=== PATIENT | female | born 1980 | race Caucasian/White ===

== ENCOUNTER → 2018-07-06 | Outpatient (CLI) | payer BC ==
[2018-07-08 14:10] LABS: HPV 16 Negative (Negative); HPV 18 Negative (Negative); HPV OTHER HR TYPES Negative (Negative)
== END | disposition home or self-care (01) ==
LOC: LAB SHORT 10:56 → LAB 10:56
PROVIDERS: Obstetrics & Gynecology
DX: Z01.419 Encounter for gynecological examination (general) (routine) without abnormal findings (principal)
CPT/HCPCS: 87624; G0123

== ENCOUNTER 2023-11-02 16:33 | Emergency (ER) | payer OTHER ==
[~2023-11-02] VITALS: Ht 160 cm; Wt 90.7 kg
[2023-11-02 16:59] VITALS: BP 186/128
== END 2023-11-02 18:10 | disposition home or self-care (01) ==
LOC: ER 16:33
DX: S70.11XA Contusion of right thigh, initial encounter (principal); S80.12XA Contusion of left lower leg, initial encounter; M25.511 Pain in right shoulder; R07.81 Pleurodynia; V59.49XA Driver of pick-up truck or van injured in collision with other motor vehicles in traffic accident, initial encounter; F41.9 Anxiety disorder, unspecified; Z88.0 Allergy status to penicillin
CPT/HCPCS: 71101; 96372; 99284-25; A9270; J1885

== ENCOUNTER 2024-11-13 20:22 | Emergency (ER) | payer OTHER ==
[~2024-11-13] VITALS: Ht 160 cm; Wt 90.7 kg
[2024-11-13 20:25] VITALS: BP 179/98
[2024-11-13] MEDS ORDERED: Ibuprofen 400 MG Tab PO ONE (23:30)
[2024-11-13] MEDS ORDERED: Acetaminophen 500 MG Tab PO ONE (23:30)
== END 2024-11-14 00:07 | disposition home or self-care (01) ==
LOC: ER 20:22
DX: M79.642 Pain in left hand (principal); Z88.0 Allergy status to penicillin
CPT/HCPCS: 29125; 73120; 99283-25; A9270

== ENCOUNTER 2025-01-14 18:02 | Emergency (ER) | payer OTHER ==
[~2025-01-14] VITALS: Ht 160 cm; Wt 90.7 kg
[2025-01-14 18:10] VITALS: BP 152/90
[2025-01-14 19:44] LABS: BASOPHILS ABSOLUTE AUTO 0.05 K/mm3 (0.00-0.23); BASOPHILS PERCENT AUTO 1 % (0-2); EOSINOPHILS ABSOLUTE AUTO 0.05 K/mm3 (0.00-0.68); EOSINOPHILS PERCENT AUTO 1 % (0-6); Hematocrit 37.8 % (33.0-51.0); Hemoglobin 12.6 g/dL (11.5-16.0); IMMATURE GRAN ABSOLUTE AUTO 0.04 K/mm3 (0.00-0.10); IMMATURE GRAN PERCENT AUTO 0 % (0-1); LYMPHOCYTES ABSOLUTE AUTO 3.12 K/mm3 (0.84-5.20); LYMPHOCYTES PERCENT AUTO 30 % (21-46); MONOCYTES ABSOLUTE AUTO 0.79 K/mm3 (0.16-1.47); MONOCYTES PERCENT AUTO 8 % (4-13); Mean Corpuscular HGB 28.1 pg (26.0-34.0); Mean Corpuscular HGB Conc 33.3 g/dL (31.5-36.5); Mean Corpuscular Volume 84 fL (80-100); Mean Platelet Volume 9.4 fL (9.1-12.4); NEUTROPHILS ABSOLUTE AUTO 6.32 K/mm3 (1.96-9.15); NEUTROPHILS PERCENT AUTO 61 % (41-73); Platelet Count 343 K/mm3 (150-400); RDW Coefficient Variation 14.1 % (11.7-14.2); RDW Standard Deviation 43.2 fL (35.1-46.3); Red Blood Cell Count 4.48 M/mm3 (3.80-5.20); White Blood Cell Count 10.37 K/mm3 (4.00-11.30)
[2025-01-14] MEDS ORDERED: Ondansetron HCl 2 MG / ML 2ML Vial IV ONE (19:45)
[2025-01-14] MEDS ORDERED: Morphine Sulfate 4 MG/1 ML Injection IV ONE (19:45)
[2025-01-14 20:15] LABS: Albumin, Blood 3.6 g/dL (3.4-5.0); Albumin/Globulin Ratio 1.1 (0.8-1.8); Bilirubin, Total 0.5 mg/dL (0.1-1.0); Bun/Creatinine Ratio 20.5 (12.0-20.0); Calcium, Blood 8.5 mg/dL (8.5-10.1); Creatinine, Blood 0.83 mg/dL (0.40-1.00); Globulin, Blood 3.3 g/dL (2.2-4.0); Total Protein, Blood 6.9 g/dL (6.4-8.2)
== END 2025-01-14 22:37 | disposition short-term general hospital (02) ==
LOC: ER 18:02
PROVIDERS: Emergency Medicine
DX: S32.432A Displaced fracture of anterior column [iliopubic] of left acetabulum, initial encounter for closed fracture (principal); S32.442A Displaced fracture of posterior column [ilioischial] of left acetabulum, initial encounter for closed fracture; S32.492A Other specified fracture of left acetabulum, initial encounter for closed fracture; S82.62XA Displaced fracture of lateral malleolus of left fibula, initial encounter for closed fracture; S92.212A Displaced fracture of cuboid bone of left foot, initial encounter for closed fracture; S82.092A Other fracture of left patella, initial encounter for closed fracture; S01.81XA Laceration without foreign body of other part of head, initial encounter; V89.2XXA Person injured in unspecified motor-vehicle accident, traffic, initial encounter
CPT/HCPCS: 12015; 70486; 71260; 72100; 73130; 73502; 73562-LT; 73610; 73620; 73700; 74177; 80053; 84703; 85025; 96374-59; 96375-59; 99285-25; J2270; J2405; Q9967

== ENCOUNTER → 2025-06-21 | Outpatient (CLI) | payer OTHER | LOC: LAB SHORT 17:12 → LAB 17:12 | DX: Z12.4 Encounter for screening for malignant neoplasm of cervix (principal) | CPT/HCPCS: 87624; G0145 ==